=== PATIENT | female | born 2000 | race Hispanic/Latino ===

== ENCOUNTER 2023-06-12 22:05 | Inpatient (IN) | payer MEDICAID, OTHER ==
[2023-06-12] MEDS: Lidocaine 1% (PF) 30 ML VIAL SC PRN (22:40)
[2023-06-12] MEDS: Oxytocin 30 units/NS 500 ML 500 ML ONE (22:45)
[2023-06-12] MEDS ORDERED: Carboprost 250 MCG/ML AMP IM PRN (23:38)
[2023-06-12] MEDS ORDERED: Misoprostol 200 MCG TAB PR PRN (23:38)
[2023-06-12] MEDS ORDERED: HYDROcodone/Acetaminophen 5/325 mg Tablet PO PRN (23:38)
[2023-06-12] MEDS ORDERED: Promethazine HCl 25 MG/ML VIAL IM PRN (23:38)
[2023-06-12] MEDS ORDERED: Methylergonovine 0.2 MG/ML VIAL IM PRN (23:38)
[2023-06-12] MEDS ORDERED: Tranexamic Acid 1,000 MG/10 ML VIAL IVP PRN (23:38)
[2023-06-12] MEDS ORDERED: Diphenoxylate HCl/Atropine Tablet PO PRN (23:38)
[2023-06-12] MEDS ORDERED: hydrALAZINE 20 MG/ML VIAL SLOW IVP PRN (23:38)
[2023-06-12] MEDS ORDERED: Ondansetron PF 4 MG/2 ML Vial IVP PRN (23:38)
[2023-06-12 23:43] VITALS: BMI 29.2
[2023-06-12] MEDS ORDERED: Lactated Ringer's 1,000 ML IV SCH (23:45)
[2023-06-12] MEDS ORDERED: Oxytocin 30 units/NS 500 ML 500 ML IV SCH (23:45)
[2023-06-12 23:56] LABS: Hematocrit 41.3 % (34.9-44.5); Hemoglobin 14.5 g/dL (12.0-15.5); Mean Corpuscular HGB CONC 35.1 g/dL (32.0-36.0); Mean Corpuscular Volume 91.2 fl (81.6-98.3); Mean Platelet Volume 9.3 fl (7.4-10.4); Platelet Count 214 10x3/uL (150-450); RBC Distribution Width 12.9 % (11.5-14.5); Red Blood Cell (RBC) Count 4.53 10x6/uL (3.90-5.03); White Blood Cell (WBC) Count 13.1 10x3/uL (3.5-10.5)
[2023-06-13 00:19] LABS: Syphilis Antibody Nonreactive (Nonreactive); Syphilis Antibody Index 0.64 S/CO (<1.00 Non-Reactive)
[2023-06-13 00:20] LABS: HBSAg Index 0.23 S/CO (0-0.99); Hep B Surf Ag Non-Reactive S/CO (NonReactive)
[2023-06-13] MEDS: Ibuprofen 800 MG TAB PO PRN (01:19)
[2023-06-13] MEDS ORDERED: hydrALAZINE 20 MG/ML VIAL SLOW IVP PRN (02:02)
[2023-06-13] MEDS ORDERED: HYDROcodone/Acetaminophen 5/325 mg Tablet PO PRN (02:02)
[2023-06-13] MEDS ORDERED: Boostrix 0.5 ML (Tdap) VIAL (>/=7 yrs of age) IM ONE (02:02)
[2023-06-13] MEDS ORDERED: Bisacodyl 10 MG SUPP PR PRN (02:02)
[2023-06-13] MEDS ORDERED: diphenhydrAMINE 25 MG CAP PO PRN (02:02)
[2023-06-13] MEDS ORDERED: Ondansetron PF 4 MG/2 ML Vial IVP PRN (02:02)
[2023-06-13] MEDS ORDERED: Lanolin Ointment 7 GM TUBE TOP PRN (02:02)
[2023-06-13] MEDS ORDERED: Milk Of Magnesia 30 ML UDCUP PO PRN (02:02)
[2023-06-13] MEDS: Lidocaine 1% (PF) 30 ML VIAL ONE (02:41)
[2023-06-13] MEDS: Oxytocin 10 UNITS/ML VIAL ONE (02:41)
[2023-06-13] MEDS: Ferrous Sulfate 325 MG TAB PO SCH (07:06)
[2023-06-13] MEDS: Ibuprofen 800 MG TAB PO SCH (07:20)
[2023-06-13] MEDS: Docusate 100 MG CAP PO SCH (09:06)
[2023-06-13] MEDS: Prenatal Vitamin 1 TAB PO SCH (09:06)
[2023-06-13] MEDS: Benzocaine-Menthol 82.5 ML CAN TOP PRN (09:06)
[2023-06-14 07:48] VITALS: BP 102/55; TEMP 97.8
== END 2023-06-14 14:08 | disposition home or self-care (01) | DRG 807 ==
LOC: CSHLD/OP 22:05 → CSHNSY 22:32 → CSHLD 22:33 → CSHPP 06-13 02:20
PROVIDERS: ADMIT Family Medicine; ATTEND Family Medicine
PROC: 10E0XZZ Delivery of Products of Conception, External Approach (ICD-10-PCS; principal; 2023-06-12)
PROC: 0KQM0ZZ Repair Perineum Muscle, Open Approach (ICD-10-PCS; 2023-06-12)
PROC: 0UQMXZZ Repair Vulva, External Approach (ICD-10-PCS; 2023-06-12)
PROC: 0UQGXZZ Repair Vagina, External Approach (ICD-10-PCS; 2023-06-12)
DX: O70.1 Second degree perineal laceration during delivery (principal); Z37.0 Single live birth; Z3A.38 38 weeks gestation of pregnancy
CPT/HCPCS: 36415; 85027; 86780; 86850; 86900; 86901; 87340; 99285; J2001; J2590